=== PATIENT | female | born 1950 | race Caucasian/White ===

== ENCOUNTER 2020-04-29 06:44 | Day surgery (SDC) | payer MEDICARE ==
[2020-04-29] MEDS ORDERED: Sodium Chloride 0.9% 1,000 ML IV SCH (07:15)
[2020-04-29] MEDS ORDERED: Midazolam 1 MG/ML 2 ML SDV ONE (07:18)
[2020-04-29] MEDS ORDERED: fentaNYL 100 MCG/2 ML SDV ONE (07:18)
[2020-04-29] MEDS ORDERED: Propofol 200 MG/20 ML SDV ONE (07:18)
--- NOTE | 2020-04-29 09:17 | OR ---
DATE OF PROCEDURE: 04/29/2020 SURGEON: Alfred Hui MD PROCEDURE: Colonoscopy. FINDINGS: 1. Diverticulosis. 2. No other gross abnormalities. COMPLICATIONS: None. REVIEW NURSE: None. ANESTHESIA: MAC. PREOPERATIVE DIAGNOSIS: Screening colonoscopy. POSTOPERATIVE DIAGNOSIS: Screening colonoscopy. RISKS: Risks, benefits, alternatives, and limitations including, but not limited to infection, bleeding, and perforation were explained to the patient along with false positives and false negatives. PROCEDURE IN DETAIL: The patient was placed in left lateral decubitus position. Digital rectal exam was performed without abnormality. Scope was introduced and advanced atraumatically to the ileocecal valve. A photo was taken of this. Scope was brought back through the ascending, transverse, descending colon and retroflexed. Prep was moderately acceptable with 90% of the luminal surface could be seen. No abnormalities on retroflexion. No colitis. No old or new blood. Diverticulosis was noted to be described as mild, limited to sigmoid colon without evidence of diverticulitis or bleeding. No abnormalities on retroflexion. Greater than 10 minutes was spent removing the scope. The patient tolerated the procedure well. Alfred Hui MD /[id number]
== END 2020-04-29 09:01 | disposition home or self-care (01) ==
LOC: JP.SDS 06:44
PROVIDERS: ATTEND Surgery
DX: Z12.11 Encounter for screening for malignant neoplasm of colon (principal); K57.30 Diverticulosis of large intestine without perforation or abscess without bleeding; I10 Essential (primary) hypertension; E78.5 Hyperlipidemia, unspecified; Z86.010 Personal history of colon polyps
CPT/HCPCS: G0105; J2250; J2704; J3010; J7030

== ENCOUNTER 2021-12-08 21:14 | Emergency (ER) | payer MEDICARE ==
[2021-12-08] MEDS ORDERED: Acetaminophen/HYDROcodone 325-10 MG Tab PO ONE (21:54)
== END 2021-12-08 22:06 | disposition home or self-care (01) ==
LOC: JP.ED 21:14
DX: G89.18 Other acute postprocedural pain (principal); M25.552 Pain in left hip
CPT/HCPCS: 99283; A9270